=== PATIENT | female | born 1985 | race Caucasian/White ===

== ENCOUNTER → 2022-04-18 | Outpatient (CLI) | payer BC ==
--- NOTE | 2022-04-18 13:01 | US ---
EXAMINATION TYPE: US transvaginal DATE OF EXAM: 04/18/2022 COMPARISON: NONE CLINICAL HISTORY: N93.8 DUB. TECHNIQUE: Transvaginal (TV). Date of LMP: Patient has been bleeding/spotting every day CLINICAL INDICATION:Female, 37 years old with history of N93.8 DUB; EXAM MEASUREMENTS: Uterus: 9.5 x 5.2 x 7.2 cm Endometrial Stripe: 0.8 cm Right Ovary: 3.8 x 1.5 x 1.6 cm Left Ovary: 2.2 x 1.8 x 2.1 cm 1. Uterus: Anteverted wnl 2. Endometrium: wnl 3. Right Ovary: wnl 4. Left Ovary: wnl 5. Bilateral Adnexa: wnl 6. Posterior cul-de-sac: wnl IMPRESSION: 1. No evidence for acute process. 2. Endometrium within normal limits for size. 3.
== END | disposition home or self-care (01) ==
LOC: RADUSWWP 12:03
PROVIDERS: ATTEND Obstetrics & Gynecology
DX: N93.8 Other specified abnormal uterine and vaginal bleeding (principal)
CPT/HCPCS: 76830

== ENCOUNTER → 2024-04-09 | Outpatient (CLI) | payer BC ==
--- NOTE | 2024-04-09 08:17 | MM ---
Reason for Exam: Clinical finding. Baseline mammogram. Indicated Problems: Lump or thickening of the right side for 1 Year(s). Patient History: Menarche at age 10. First Full-Term at age 19. Premenopausal. Mother had breast cancer, age 33. Last menstrual period: 03/19/2024 Risk Values: Beatrice 5 year model risk: 0.9%. NCI Lifetime model risk: 19.6%. Prior Study Comparison: Patient's first Mammogram. Tissue Density: The breasts are heterogeneously dense, which may obscure small masses. Findings: Analyzed By CAD. 10 mm nodular density at the site of clinical concern right breast. Ultrasound is recommended. No nodules or masses left breast. No suspicious microcalcifications. Overall Assessment: Incomplete: need additional imaging evaluation, BI-RAD 0 Management: Diagnostic Breast Ultrasound of the right breast. . Results were given to the patient verbally at the time of exam. Patient should continue monthly self-breast exams. A clinical breast exam by your physician is recommended on an annual basis. This exam should not preclude additional follow-up of suspicious palpable abnormalities. Note on Beatrice scores and lifetime risk: 1. A Beatrice score greater than 3% is considered moderate risk. If this is the case, consider specialist referral to assess eligibility for a risk reducing agent. 2. If overall lifetime risk for the development of breast cancer is 20% or higher, the patient may qualify for future screening with alternating mammogram and breast MRI. Electronically signed and approved by: Raghav Douglas M.D. Radiologis
--- NOTE | 2024-04-09 08:20 | USB ---
Reason for Exam: Clinical finding. Patient History: Menarche at age 10. First Full-Term at age 19. Premenopausal. Mother had breast cancer, age 33. Risk Values: Beatrice 5 year model risk: 0.9%. NCI Lifetime model risk: 19.6%. Technique: Method: Targeted. Findings: The area of palpable concern of the right breast, the axilla of the right breast and the retroareolar of the right breast were scanned. At the site of clinical concern right breast 2:00 position 6 cm from the nipple there is a 1.0 x 0.5 cm well marginated cyst. No solid masses seen. Overall Assessment: Benign, BI-RAD 2 Management: Screening Mammogram of both breasts at age 41. A clinical breast exam by your physician is recommended on an annual basis and results should be correlated with mammographic findings. This exam should not preclude additional follow-up of suspicious palpable abnormalities. Results were given to the patient verbally at the time of exam. Electronically signed and approved by: Raghav Douglas M.D. Radiologis
== END | disposition home or self-care (01) ==
LOC: RADMAMWWP 07:33
PROVIDERS: ATTEND Family Medicine
DX: N63.10 Unspecified lump in the right breast, unspecified quadrant
CPT/HCPCS: 77062; 77066